=== PATIENT | female | born 1970 | race Caucasian/White ===

== ENCOUNTER 2018-04-04 11:45 | Inpatient (IN) | payer OTHER ==
[~2018-04-04] VITALS: Ht 180.3 cm; Wt 58.5 kg
[2018-04-04] MEDS ORDERED: LORAZEPAM 1 MG TABLET PO PRN (13:45)
[2018-04-04] MEDS ORDERED: METHOCARBAMOL 750 MG TABLET PO PRN (13:45)
[2018-04-04] MEDS ORDERED: BUPRENORPHINE HCL 2 MG TAB.SUBL SL PRN ×2 (13:45→14:00)
[2018-04-04] MEDS ORDERED: 5 DAY TAPER BUPRENORPHINE -SERENITY PROTOCOL SL PRN (14:00)
[2018-04-04] MEDS ORDERED: 6 DAY PHENOBARBITAL TAPER -SERENITY PROTOCOL PO PRN (14:00)
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
[2018-04-04 14:23] LABS: *URINE HCG, QUAL NEGATIVE (NEGATIVE)
[2018-04-04 14:23] LABS: BASOPHILS % (AUTO) 0.5 % (0.0-2.0); EOSINOPHILS # (AUTO) 0.1 K/uL (0.0-0.7); EOSINOPHILS % (AUTO) 1.3 % (0.0-7.0); HEMATOCRIT 37.4 % (31.2-41.9); HEMOGLOBIN 12.7 g/dL (10.9-14.3); LYMPHOCYTES # (AUTO) 1.3 K/uL (20.0-40.0); LYMPHOCYTES % (AUTO) 15.2 % (20.5-51.5); MEAN CORPUSCULAR HEMOGLOBIN 29.7 uug (24.7-32.8); MEAN CORPUSCULAR HGB CONC 34 g/dL (32.3-35.6); MEAN CORPUSCULAR VOLUME 87.5 fL (75.5-95.3); MONOCYTES # (AUTO) 0.7 K/uL (2.0-10.0); MONOCYTES % (AUTO) 8.5 % (0.0-11.0); NEUTROPHILS # (AUTO) 6.3 K/uL (1.8-8.9); NEUTROPHILS % (AUTO) 74.5 % (38.5-71.5); PLATELET COUNT (AUTO) 288 K/uL (179-408); RED BLOOD CELL COUNT(AUTO) 4.28 MIL/uL (3.63-4.92); WHITE BLOOD COUNT (AUTO) 8.5 K/uL (3.8-11.8)
[2018-04-04 14:29] LABS: ALANINE AMINOTRANSFERASE 111 U/L (14-59); ALKALINE PHOSPHATASE 63 U/L (50-136); ASPARTATE AMINOTRANSFERASE 83 U/L (15-37); BILIRUBIN,TOTAL 0.4 mg/dL (0.2-1.0); CARBON DIOXIDE 35 mmol/L (21-32); CHLORIDE 104 mmol/L (98-107); CREATININE 0.7 mg/dL (0.6-1.3); GLUCOSE 114 mg/dL (74-106); MAGNESIUM 2.1 mg/dL (1.8-2.4); POTASSIUM 4.2 mmol/L (3.5-5.1); TOTAL PROTEIN, SERUM 7.4 g/dL (6.4-8.2); UREA NITROGEN, BLOOD 4 mg/dL (7-18)
[2018-04-04] MEDS ORDERED: THIAMINE HCL 200 MG/2 ML VIAL IM ONE (14:29)
[2018-04-04 14:34] VITALS: BP 137/84
[2018-04-04 14:41] LABS: *AMPHETAMINE, URINE POSITIVE (NEGATIVE); *BARBITURATE, URINE NEGATIVE (NEGATIVE); *CANNABINOID, URINE NEGATIVE (NEGATIVE); *COCCAINE, URINE NEGATIVE (NEGATIVE); *OPIATE, URINE POSITIVE (NEGATIVE); *PHENCYCLIDINE SCREEN,URINE NEGATIVE (NEGATIVE)
[2018-04-04 14:47] LABS: ETHANOL < 3 MG/DL (0-0)
[2018-04-04] MEDS ORDERED: ATEN50TA PO (14:50)
[2018-04-04] MEDS ORDERED: ONDA8TAB13 PO (14:51)
[2018-04-04] MEDS ORDERED: HYDR28GE TP (14:53)
[2018-04-04 16:29] VITALS: BP 129/88
[2018-04-04] MEDS: IBUPROFEN 600 MG TABLET PO PRN (16:34)
--- NOTE | 2018-04-04 16:34 | NUR ---
PRN ATIVAN/IBUPROFEN/ROBAXIN Patient presented with tremors, anxiety, agitation, fidgety, and mild numbness to hands and feet, with ciwa score of: 15. Patient also complained of back pain 04/09, Administered Ibuprofen and Robaxin as ordered, will monitor effectiveness of medications.
--- NOTE | 2018-04-04 17:34 | NUR ---
ATIVAN/IBUPROFEN/ROBAXIN REASSESSMENT Medications were effective. Patient presented with: decrease in tremors, anxiety and agitation, current ciwa score of: 12. Patient also reports decrease in pain. current pain level of 3/10, tolerable pain level as per patient, will continue to monitor.
--- NOTE | 2018-04-04 19:05 | NUR ---
MD COMMUNICATION Patient asked staff nurse if she has sleeping medication available, since she has been taking Ambien for sleep and has a difficult time falling asleep, per patient reports in the past Seroquel has been effective, reports has taken Seroquel 100mg at bedtime, notified Dr. Centeno with one time order for Seroquel 100mg HS for sleep, Dr. Centeno unable to input order at this time. Order was read back and verified, noted and carried out.
--- NOTE | 2018-04-04 19:08 | NUR ---
START OF SHIFT The patient is a 47 year old female admitted today for Benzodiazepines (Xanax, Clonazepam), Opioid (Vicodin), Tramadol, Ketamine, Adderall, Ambien withdrawal, ordered 5 Day Subutex Taper and 6 day Phenobarbital Taper, that will start on 04/05/2018. The patient reports NKA, Regular diet, is on Fall and Seizures Precautions. The patient denies history of withdrawal-induced seizures. Patient denies SI/HI. The patient presents with anxious mood and flat affect. Last COWS=9, CIWA=12 at 1734. The patient c/o anxiety, agitation, nervousness, irritability, restlessness, fatigue, nervousness, tremors, generalized body aches, and fatigue. PRN Motrin 600 mg PO administrated for back pain at 1634, PRN Robaxin 750 mg PO administrated for myalgia at 1634, and PRN Ativan 2 mg administrated for CIWA=15 at 1734, and were effective per day shift nurse report. The patient remains compliant with treatment, medications, and diet regime. VSWNL. Skin is intact, warm and dry to touch. Encouraged to fluids intake as tolerated. Encouraged to attend group activities. Safe and calm environment with minimized noises was provided. All needs met. Safety measures: Call light within reach, bed is locked in lowest position, and padded bed rails up bilaterally. T he patient endorsed by outgoing day shift nurse. Will continue to monitor closely.
--- NOTE | 2018-04-04 19:08 | NUR ---
END OF SHIFT Patient admitted today during shift, with admitting Dx: BZO/Opiate withdrawal. Patient currently continues under close observation. Patient noted with avoidant eye contact, has sad and worried facial expression, flat and labile affect. Presented with: tremors, anxiety, agitation, mild numbness to hands and feet, enlarged pupils, difficulty sitting still, fidgety, and bone and joint aches with ciwa score of: 15, and cow score of: 9. Patient was administered PRN Ativan 2 mg PO as ordered for s/sx of withdrawal, MD notified as well. Patient was also administered PRN: Ibuprofen and Robaxin as ordered, medications were effective. Patient is scheduled to begin a 5 day Subutex taper and 6 day phenobarbital taper tomorrow morning. Will continue under close observation. safety measures are in place. call light with in reach, will continue to monitor closely. patient endorsed to shell molding roller blast operator nurse, all pertinent information discussed.
[2018-04-04 20:00] VITALS: BP 122/87
--- NOTE | 2018-04-04 20:33 | NUR ---
PRN ATIVAN 2 MG PO AND PRN SUBUTEX 4MG SL ADMINISTRATION. The patient has moderate withdrawal symptomps m/b anxiety, agitation, irritability, nervousness, tremors, stomach cramps, nasal congestion, nausea, sweating,restlessness, generalized body aches, fatigue, insomnia,pins and needles sensations, and yawning. COWS=16, CIWA=16. PRN Ativan 2mg PO and PRN Subutex 4 mg SL administrated as ordered. Patient tolerated well. All needs met. Safe and calm environment with minimized noises was provided. Safety measures on place. Call light within reach, bed in lowest position locked, padded rails up bilaterally. Will continue to monitor closely.
[2018-04-04] MEDS ORDERED: QUETIAPINE FUMARATE 100 MG TABLET PO ONE (21:00)
--- NOTE | 2018-04-04 21:33 | NUR ---
PRN ATIVAN PO AND PRN SUBUTEX SL RE-ASSESSMENT Patient is sleeping. RR 16. Respirations even and unlabored. PRN Attivan 2 mg PO administrated for CIWA=16, and PRN Subutex 4 mg SL administrated for COWS=16, were effective. Safe and calm environment with minimized noises was provided. All needs met. Safety measures on place. Call light within reach, bed in lowest position locked, padded rails up bilaterally. Will continue to monitor closely.
[2018-04-04] MEDS: ATENOLOL 50 MG TABLET PO SCH (22:08)
[2018-04-04 22:48] LABS: *BILIRUBIN,URIN NEGATIVE (NEGATIVE); *BLOOD, URINE Trace-intact (NEGATIVE); *CLARITY,URINE CLEAR (CLEAR); *COLOR,URINE YELLOW (YELLOW); *KETONES,URINE NEGATIVE (NEGATIVE); *PROTEIN,URINE NEGATIVE (NEGATIVE); *UROBILINOGEN,URINE 0.2 E.U./dl (NORMAL); LEUKOCYTE ESTERASE ,URINE NEGATIVE (NEGATIVE); NITRITE, URINE NEGATIVE (NEGATIVE); UGLUCOSE NEGATIVE (NEGATIVE)
[2018-04-04] MEDS: ONDANSETRON ODT 4 MG TAB.RAPDIS SL PRN (22:57)
--- NOTE | 2018-04-04 22:57 | NUR ---
PRN ZOFRAN ODT 4 MG SL ADMINISTRATION Patient c/o nausea. PRN Zofran 4 mg SL administrated as ordered. Patient tolerated well. All needs met. Safe and calm environment with minimized noises was provided. Safety measures on place. Call light within reach, bed in lowest position locked, padded rails up bilaterally. Will continue to monitor closely.
[2018-04-04 23:01] LABS: BACTERIA,URINE NONE SEEN /HPF (NONE SEEN); RBC,URINE 0-3 /HPF (0-3); WBC,URINE NONE SEEN /HPF (0-3)
[2018-04-04 23:02] LABS: SQUAMOUS EPITHELIAL CELL,UR FEW /HPF (NONE SEEN)
--- NOTE | 2018-04-04 23:57 | NUR ---
PRN ZOFRAN SL RE-ASSESSMENT Patient is sleeping. RR: 16. Respirations are even and unlabored. PRN Zofran 4 mg SL administrated for nausea at 2257 was effective. Safe and calm environment with minimized noises was provided. All needs met. Safety measures on place. Call light within reach, bed in lowest position locked, padded rails up bilaterally. Will continue to monitor closely.
[2018-04-05] VITALS: BP 96/54
[2018-04-05 04:00] VITALS: BP 99/64
[2018-04-05 05:07] LABS: HEPATITIS B SURFACE AG Negative (Negative)
--- NOTE | 2018-04-05 07:11 | NUR ---
END OF SHIFT NOTE: Endorsed 47 year old female reports NKA, is on Regular Diet, Full Code, is on Fall and Seizures Precautions, denies history of withdrawal-induced seizures. The patient admitted for Benzodiazepines and Opioid withdrawal, ordered 6 day Phenobarbital, and 5 day Subutex Tape. The patient is alert and oriented x4, cooperative, with steady gait, and clear, soft speech. Initial COWS=16, CIWA=16 at 2000, COWS=12, CIWA=11 at 0000. The most recent COWS=12, CIWA=12 at 0400. Affect liable. Mood anxious. The patient presented with anxiety, agitation, nervousness, tremors, irritability, sweating, generalized body aches, very mild lightheaded, nausea, insomnia, yawning, restlessness, and fatigue. COWS/CIWA taken when patient's awake during night. Respirations are unlabored and even. Skin is intact, warm and dry to touch. PRN Ativan 2 mg PO administrated for CIWA=16 , and PRN Subutex 4 mg SL administrated for COWS=16, and PRN Zofran 4 mg SL administrated for nausea at 2257 was effective, and were effective. Patient remains compliant with treatment, medications, and diet regime. Safe and calm environment with minimized noises was provided. Patient slept for 6 hours, intake 855 ml, voided x3. All needs met. Safety measures: Call light within reach, bed is locked in the lowest position, and padded bed rails up x2. Patient endorsed to day shift nurse.
--- NOTE | 2018-04-05 07:16 | NUR ---
BEGINNING OF SHIFT Patient endorsement report received from typewriter repairer nurse, all pertinent information was discussed. Patient is a 47 year old female admitted on 04/04/2018 with admitting Dx: opiate/BZO withdrawal, patient also with substance use of: tramadol, ketamine, Adderall, and Ambien.Patient currently scheduled to begin a 5 day Subutex taper, and a 6 day phenobarbital taper this morning, will monitor patient closely. As per typewriter repairer patient with poor sleeping pattern, slept for 6 hours intermittently. Per typewriter repairer patient c/o of "bladder infection" urinalysis completed, and negative in results will encourage patient to increase PO fluid intake as tolerated. patients fall and seizure precautions are in place. Per typewriter repairer patient received PRN: Ativan 2mg PO, Subutex 4mg SL, and Zofran medications. Patient with last cow score of: 12, and last ciwa score of: 12. Patient received with eyes closed, respirations are even and unlabored, patient responsive to verbal stimuli, will educate regarding plan of care for the day and medication regimen. will continue to monitor closely. safety measures are in place. call light with in reach.
[2018-04-05 08:29] VITALS: BP 122/81
[2018-04-05] MEDS: MULTIVITAMINS,THERAPEUTIC TABLET PO SCH (08:57)
[2018-04-05] MEDS: ONDANSETRON ODT 4 MG TAB.RAPDIS SL PRN ×2 (08:57→18:21)
[2018-04-05] MEDS: IBUPROFEN 600 MG TABLET PO PRN (08:57)
[2018-04-05] MEDS: PHENOBARBITAL 60 MG TABLET PO SCH ×4 (08:57→20:31)
[2018-04-05] MEDS: ATENOLOL 50 MG TABLET PO SCH (08:57)
[2018-04-05] MEDS: BUPRENORPHINE HCL 2 MG TAB.SUBL SL SCH ×4 (08:57→20:31)
[2018-04-05] MEDS: FOLIC ACID 1 MG TABLET PO SCH (08:57)
[2018-04-05] MEDS: THIAMINE HCL 100 MG TABLET PO SCH (08:57)
--- NOTE | 2018-04-05 08:57 | NUR ---
PRN MOTRIN/ZOFRAN Patient c/o generalized back pain 5/10, also reports intermittent nausea. Patient was administered Ibuprofen as ordered for pain, and administered Zofran 4 mg SL as ordered for nausea, will monitor effectiveness of medication.
[2018-04-05] MEDS ORDERED: TUBERCULIN,PURIF.PROT.DERIV. 5 TU/0.1 ML TEST ID ONE (09:00)
--- NOTE | 2018-04-05 09:27 | NUR ---
ZOFRAN REASSESSMENT Medication effective, patient reports decrease in nausea, will continue to monitor.
--- NOTE | 2018-04-05 09:57 | NUR ---
IBUPROFEN REASSESSMENT Patient reports medication effective, decrease in pain level, current pain level 2/10, will monitor effectiveness of medication.
[2018-04-05 12:58] VITALS: BP 138/92
[2018-04-05] MEDS: GABAPENTIN 300 MG CAPSULE PO SCH ×2 (13:23→16:42)
[2018-04-05 16:40] VITALS: BP 122/79
--- NOTE | 2018-04-05 18:21 | NUR ---
PRN ZOFRAN Patient reports increase in nausea, administered Zofran 4 mg SL as ordered for nausea, will monitor effectiveness of medication.
--- NOTE | 2018-04-05 18:51 | NUR ---
ZOFRAN REASSESSMENT Medication effective, patient reports decrease in nausea, will continue to monitor.
--- NOTE | 2018-04-05 19:01 | NUR ---
END OF SHIFT Patient alert and oriented x4 during shift. Patient admitted yesterday with admitting Dx: BZO/Opiate withdrawal. Patient began a 5 day Subutex taper and 6 day phenobarbital taper, with first dose administered this morning, well tolerated. Continues under very close observation. During shift patient presented with: elevated heart rate, sweats, difficulty sitting still, moderate dilated pupils, nasal congestion, nausea, tremors, yawning, irritability, anxiety and mild right foot numbness. Patient with initial cow score of: 15, and ciwa score of 22. Patient with last cow score of: 15 and last ciwa score of: 18. Patient also noted with avoidant eye contact, has sad facial expression, and labile affect. Patient administered PRN: Zofran x2 and Motrin during shift, medications were effective. Will continue under close observation. safety measures are in place. call light with in reach, will continue to monitor closely. patient endorsed to material handler 2nd shift nurse, all pertinent information discussed.
--- NOTE | 2018-04-05 19:01 | NUR ---
START OF SHIFT NOTE: Presented 47 year old female tolerated well with ordered 5 Day Subutex Taper and 6 day Phenobarbital Taper for Benzodiazepines (Xanax, Clonazepam), Opioid (Vicodin), Tramadol, Ketamine, Adderall, Ambien withdrawal. The patient reports NKA, Regular diet, is on Fall and Seizures Precautions. The patient denies history of withdrawal-induced seizures. Patient denies SI/HI. The patient appears with anxious mood and liable affect. Last COWS=15, CIWA=18 at 1734. The patient c/o anxiety, agitation, nervousness, irritability, nausea, abdominal cramps, restlessness, fatigue, nervousness, tremors, generalized body aches, low back pain, pins and needles sensations, and fatigue. PRN Motrin 600 mg PO administrated for low back pain "5/10" at 0857, PRN Zofran 4 mg SL administrated for nausea at 0857, and were effective per day shift nurse report. The patient remains compliant with treatment, medications, and diet regime. VSWNL. Skin is intact, warm and dry to touch. Encouraged to fluids intake as tolerated. Encouraged to attend group activities. Safe and calm environment with minimized noises was provided. All needs met. Safety measures: Call light within reach, bed is locked in lowest position, and padded bed rails up bilaterally. The patient endorsed by outgoing day shift nurse. Will continue to monitor closely.
[2018-04-05 20:00] VITALS: BP 118/81
[2018-04-05] MEDS: QUETIAPINE FUMARATE 100 MG TABLET PO PRN (20:32)
--- NOTE | 2018-04-05 20:32 | NUR ---
PRN SEROQUEL 100 MG PO ADMINISTRATION PRN Seroquel 100 mg PO administrated for insomnia, as ordered. Patient tolerated well. Safe and calm environment with minimized noises was provided. All needs met. Safety measures: Call light within reach, bed locked in lowest position, and padded bed rails up bilaterally. Will continue to monitor closely.
[2018-04-05 20:53] LABS: BILIRUBIN,TOTAL 0.2 mg/dL (0.1-1.0); CREATININE 0.7 mg/dL (0.6-1.3); POTASSIUM 4.9 mmol/L (3.5-5.1)
[2018-04-05 20:54] LABS: TOTAL PROTEIN, SERUM 6.4 g/dL (6.4-8.2)
--- NOTE | 2018-04-05 21:32 | NUR ---
PRN SEROQUEL PO RE-ASSESSMENT Patient is sleeping. RR 15. Respirations even and unlabored. PRN Seroquel 100 mg PO administrated for insomnia at 2031, was effective. Safe and calm environment with minimized noises was provided. All needs met. Safety measures: Call light within reach, bed locked in lowest position, and padded rails up bilaterally. Will continue to monitor closely.
--- NOTE | 2018-04-06 | NUR ---
VS REFUSED, CIWA /COWS DEFERRED VS refused, CIWA/COWS deferred at 0000 due to patient sleeping; to be assessed and scored while patient is awake. Respirations are even and unlabored. RR:14. Safe and calm environment with minimized noises was provided. All needs met. Safety measures: Call light within reach bed is locked in lowest position, and padded bed rails up bilaterally.
--- NOTE | 2018-04-06 04:00 | NUR ---
VS REFUSED, COWS/CIWA DEFERRED VS refused, COWS/CIWA deferred at 0400 due to patient sleeping; to be assessed and scored while patient is awake. Respirations are even and unlabored. RR:17. Safe and calm environment with minimized noises was provided. All needs met. Safety measures: Call light within reach bed is locked in lowest position, and padded bed rails up bilaterally.
--- NOTE | 2018-04-06 07:12 | NUR ---
END OF SHIFT The patient is a 47 year old female presented for Benzodiazepines (Xanax, Clonazepam), Opioid (Vicodin), Tramadol, Ketamine, Adderall, Ambien withdrawal, continues ordered 5 Day Subutex Taper and 6 day Phenobarbital Taper, which tolerated well. The patient is alert and oriented x4, ambulatory with stable gate. The patient is cooperative, with soft, and clear speech. The patient noted with flat affect and liable mood. Educated to use of Relaxation Techniques: Deep breathing exercises, guided imagery, and visualization. Encouraged verbalization of feelings, fears, and anxiety. Emotional support and reassurance provided to patient. COWS=12, CIWA=12 at 1999. During overnight stocker she presented with anxiety, agitation, nervousness, irritability, headache, generalized body aches, abdominal cramps, nasal congestion, sweating, restlessness, fatigue, and yawning. VS refused, COWS/CIWA deferred at 0000 and 0400 a due to patient sleeping; to be assessed and scored while patient is awake. No S/S of distress noted during my shift. Respirations are unlabored and even. Skin is intact, warm and dry to touch. PRN Seroquel 100 mg PO administrated for insomnia at 2031, and was effective. Patient remains compliant with treatment, medications, and diet regime. Safe and calm environment with minimized noises was provided. Encouraged to increase oral fluid intake as tolerated. The patient slept for 7 hours, intake 710 ml, voided x2, stool x1. All needs met. Safety measures: Call light within reach, bed in the lowest position and locked, and padded bed rails up x2. Patient endorsed to day shift nurse.
--- NOTE | 2018-04-06 07:29 | NUR ---
BEGINNING OF SHIFT Patient endorsement report received from shift superintendent caustic cresylate nurse, all pertinent information was discussed. Patient is a 47 year old female. Patient with admitting Dx: opiate/BZO withdrawal. Patient continues on a 5 day Subutex taper, and a 6 day phenobarbital taper and is scheduled to begin day 2 of taper. Per shift superintendent caustic cresylate patient slept for 7 hours. Received PRN: seroquel during shift superintendent caustic cresylate for sleep, medication effective, patient slept for 7 hours. Patient with last cow score of: 12, and last ciwa score of: 12. Patient received with eyes closed, respirations are even and unlabored, patient responsive to verbal stimuli, will educate regarding plan of care for the day and medication regimen. will continue to monitor closely. safety measures are in place. call light with in reach.
[2018-04-06 08:07] VITALS: BP 103/62
[2018-04-06] MEDS: BUPRENORPHINE HCL 2 MG TAB.SUBL SL SCH ×3 (08:33→20:51)
[2018-04-06] MEDS: GABAPENTIN 300 MG CAPSULE PO SCH ×3 (08:33→17:25)
[2018-04-06] MEDS: MULTIVITAMINS,THERAPEUTIC TABLET PO SCH (08:33)
[2018-04-06] MEDS: FOLIC ACID 1 MG TABLET PO SCH (08:33)
[2018-04-06] MEDS: PHENOBARBITAL 60 MG TABLET PO SCH ×3 (08:33→20:52)
[2018-04-06] MEDS: ONDANSETRON ODT 4 MG TAB.RAPDIS SL PRN ×2 (08:33→20:57)
[2018-04-06] MEDS: ATENOLOL 50 MG TABLET PO SCH (08:33)
[2018-04-06] MEDS: THIAMINE HCL 100 MG TABLET PO SCH (08:33)
[2018-04-06] MEDS: IBUPROFEN 600 MG TABLET PO PRN ×2 (08:33→20:52)
[2018-04-06] MEDS: METHOCARBAMOL 500 MG TABLET PO PRN ×2 (08:34→20:52)
--- NOTE | 2018-04-06 08:34 | NUR ---
PRN ZOFRAN, MOTRIN, ROBAXIN Patient reports intermittent nausea, myalgia and generalized body pain 05/10, administered Zofran, Motrin and Robaxin all as ordered, will monitor effectiveness of medication.
--- NOTE | 2018-04-06 09:00 | NUR ---
COW/CIWA ASSESSMENT Patient in bed, noted with sad and worried facial expression, with flat affect. Noted with anxious/depressed mood. Patient presented with: elevated heart rate, sweats, facial flushing, difficulty sitting still, enlarged pupils, bone and joint aches, nausea, tremors, anxiety, agitation, moderate numbness to right foot, sensitivity to light and to noise. Patient with cow score of: 15, and ciwa score of: 27. MD notified of patients CIWA Score, No new orders. Patient continues on Subutex and phenobarbital taper as ordered. Encouraged patient to increase PO fluid intake as tolerated.
--- NOTE | 2018-04-06 09:34 | NUR ---
MOTRIN/ROBAXIN REASSESSMENT Patient reports medication was effective, decrease in myalgia and generalized body pain, current pain level 4/10. will continue to monitor.
--- NOTE | 2018-04-06 10:04 | NUR ---
ZOFRAN REASSESSMENT Patient reports medication effective, decrease in nausea, will continue to monitor.
--- NOTE | 2018-04-06 12:00 | NUR ---
MD COMMUNICATION Dr. Jacobs notified of patients CK level of: 513. Will continue to monitor.
--- NOTE | 2018-04-06 13:00 | NUR ---
COW/CIWA ASSESSMENT Patient awake alert and oriented x4, continues under close observation, patient continues to present with: sweats, facial flushing, difficulty sitting still, enlarged pupils, bone and joint aches, nausea, tremors, anxiety, agitation, and moderate numbness to right foot. Patient with cow score of: 14, and ciwa score of: 23. Detox medication effective at reducing withdrawal symptoms. vital signs monitored closely. MD notified of patients CIWA Score, No new orders. Patient continues on Subutex and phenobarbital taper as ordered. Safety measures in place.
[2018-04-06 13:45] VITALS: BP 122/75
--- NOTE | 2018-04-06 14:25 | NUR ---
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 Dr. Avina aware, patient placed on isolation precautions and scheduled to begin Bactroban therapy. Teaching provided regarding MRSA, with good verbal understanding. Will continue to monitor closely.
--- NOTE | 2018-04-06 17:00 | NUR ---
COW/CIWA ASSESSMENT Patient awake alert and oriented x4, continues under close observation, patient continues to exhibit the following s/sx of withdrawal: sweats, facial flushing, difficulty sitting still, enlarged pupils, bone and joint aches, nausea, tremors, anxiety, agitation, and moderate numbness to right foot. Patient with cow score of: 14, and ciwa score of: 23. vital signs monitored closely. MD notified of patients CIWA Score, No new orders. Patient continues on Subutex and phenobarbital taper as ordered. Safety measures in place.
[2018-04-06 17:01] VITALS: BP 97/57
[2018-04-06 17:02] VITALS: BP 126/89
--- NOTE | 2018-04-06 18:57 | NUR ---
END OF SHIFT Patient alert and oriented x4 during shift. Patient with admitting Dx: BZO/Opiate withdrawal. During shift patient was noted with sad and worried facial expression, with flat affect. Noted with anxious/depressed mood. Patient presented with: elevated heart rate, sweats, facial flushing, difficulty sitting still, enlarged pupils, bone and joint aches, nausea, tremors, anxiety, agitation, moderate numbness to right foot, sensitivity to light and to noise. Initial cow score of: 15, and ciwa score of: 27, last cow score of: 14, and ciwa score of: 23. MD was notified of patients CIWA Score due to above 15. Patient continues on Subutex and phenobarbital taper as ordered, currently on day 2 of taper. Encouraged patient to increase PO fluid intake as tolerated. Patient received PRN: Zofran, Motrin and Robaxin during shift, medications were effective. Will continue under close observation. safety measures are in place. call light with in reach, will continue to monitor closely. patient endorsed to maintenance supervisor 2nd shift nurse, all pertinent information discussed.
--- NOTE | 2018-04-06 19:30 | NUR ---
START OF SHIFT Received 47 year old female patient admitted on 04/04/18 for Benzodiazepine, Opiates and amphetamine withdrawal. Pt is alert and oriented x4. She is noted with anxiety, flushed face, restlessness, and irritability. She complains of head, neck and right leg pain 04/09. She is receiving a 5 day Subutex and 6 day Phenobarbital taper and is tolerating well. 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 She is being treated with Bactroban ointment. She received PRN Zofran, Motrin and Robaxin. Last COWS:14, CIWA:23. Breathing is even and unlabored, safety measures in place. Will continue to monitor.
[2018-04-06 20:00] VITALS: BP 130/80
--- NOTE | 2018-04-06 20:00 | NUR ---
COWS/CIWA ASSESSMENT Pt reports nausea, increased anxiety, agitation, restlessness, chills, sweats, severe aching of muscles, slight tremor, sensitivity to light, insomnia, mild numbness/pins and needles to right leg, and mild lightheaded ness. COWS:14, CIWA:20. Will continue to monitor.
[2018-04-06] MEDS: QUETIAPINE FUMARATE 100 MG TABLET PO PRN (20:53)
[2018-04-06] MEDS: HYDROXYZINE PAMOATE 25 MG CAPSULE PO PRN (20:53)
--- NOTE | 2018-04-06 20:53 | NUR ---
PRN VISTARIL, SEROQUEL, MOTRIN, ROBAXIN, ZOFRAN Pt complains of anxiety, difficulty falling asleep, neck and back pain 7/10, body aches and nausea. PRN Vistaril, Seroquel, Motrin, Robaxin and Zofran administered as ordered. Safety measures in place. Will monitor effectiveness.
[2018-04-06] MEDS: MUPIROCIN 2% OINT 22 GM TUBE TP SCH (20:54)
--- NOTE | 2018-04-06 21:53 | NUR ---
PRN VISTARIL, SEROQUEL, MOTRIN, ROBAXIN, ZOFRAN REASSESSMENT PRN medications effective. Pt is lying in bed with eyes closed and is noted to be asleep. Breathing is even and unlabored, safety measures in place. Will continue to monitor.
[2018-04-07 00:20] VITALS: BP 131/85
--- NOTE | 2018-04-07 00:22 | NUR ---
COWS/CIWA ASSESSMENT Pt noted with chills/sweats, tremors, muscle aches, anxiety, restlessness, sensation of numbness and pin/needles to the right leg. COWS:10, CIWA:15. Will monitor.
--- NOTE | 2018-04-07 04:00 | NUR ---
VITALS REFUSED, COWS/CIWA DEFERRED 0400 vitals signed were refused by pt at beginning of shift. COWS/CIWA deferred d/t pt lying in bed with eyes closed and is noted to be asleep. Breathing is even and unlabored, safety measures in place. Will monitor.
--- NOTE | 2018-04-07 07:08 | NUR ---
END OF SHIFT Pt is a 47 year old female patient admitted on 04/04/18 for Benzodiazepine, Opiates and amphetamine withdrawal. Pt remains alert and oriented x4. She was noted with anxiety, flushed face, restlessness, and irritability. And complained of head, neck and right leg pain 7/10 during the shift. She continues on a 5 day Subutex and 6 day Phenobarbital taper and is tolerating well. She remains on isolation for MRSA+ of nares and is being treated with Bactroban ointment Q12H.At 2052 she received PRN Seroquel , Motrin, Robaxin, Vistaril and Zofran. She slept a total of 8 hrs,Intake: 855mL, Void: x2, BM:x1, COWS:10, CIWA:15 at 0000. Breathing is even and unlabored, safety measures in place. Endorsed to AM shift.
--- NOTE | 2018-04-07 07:30 | NUR ---
START OF SHIFT NOTE Received repot from night nurse, 47 year old female admitted for Benzo, Opioids, Amphetamine withdrawal. Patient continues on Phenobarbital and Subutex taper tolerating well. Per endorsement pt received PRN Seroquel, Motrin, Robaxin, Vistaril, Zofran effective per night nurse, pt continues on isolation for MRSA nares and treating with Bactroban. Received pt alert awake oriented x4, complaining of anxiety, agitation, restless. Patient is due for scheduled medications. Educated pt regarding plan of care for the day and medications regimen. All safety measures in place. Call light within reach. Will cont to monitor.
[2018-04-07 08:00] VITALS: BP 120/78
--- NOTE | 2018-04-07 08:00 | NUR ---
COWS/CIWA ASSESSMENT Patient is alert awake oriented x4 continues to exhibit s/s of withdrawal such as nausea,bilateral hand tremors, sweats, chills, anxious and agitated, bone and joint aches, difficulty sitting still, yawning, CIWA score -15, and COWS noted-14. will cont to monitor.
[2018-04-07] MEDS: GABAPENTIN 300 MG CAPSULE PO SCH ×3 (08:47→16:36)
[2018-04-07] MEDS: THIAMINE HCL 100 MG TABLET PO SCH (08:47)
[2018-04-07] MEDS: FOLIC ACID 1 MG TABLET PO SCH (08:47)
[2018-04-07] MEDS: MUPIROCIN 2% OINT 22 GM TUBE TP SCH (08:47)
[2018-04-07] MEDS: MULTIVITAMINS,THERAPEUTIC TABLET PO SCH (08:47)
[2018-04-07] MEDS: PHENOBARBITAL 60 MG TABLET PO SCH ×4 (08:48→20:36)
[2018-04-07] MEDS: ATENOLOL 50 MG TABLET PO SCH (08:49)
[2018-04-07] MEDS ORDERED: BUPRENORPHINE HCL 2 MG TAB.SUBL SL SCH (09:00)
[2018-04-07] MEDS: ONDANSETRON ODT 4 MG TAB.RAPDIS SL PRN ×2 (09:35→20:50)
--- NOTE | 2018-04-07 09:35 | NUR ---
PRN ZOFRAN Patient reported feeling nauseated with no c/o of vomiting. provided with non pharmacological intervention with no relief. PRN Zofran 4mg SL administered as ordered. Will cont to monitor and reassess for effectiveness.
--- NOTE | 2018-04-07 10:35 | NUR ---
ZOFRAN REASSESSMENT Per patient nausea subsided and Zofran was effective.
[2018-04-07 12:00] VITALS: BP 117/75
--- NOTE | 2018-04-07 12:00 | NUR ---
COWS/CIWA ASSESSMENT Patient is alert awake oriented x4 continues to exhibit s/s of withdrawal such as nausea, bilateral hand tremors, sweats, chills, anxious and agitated, bone and joint aches, difficulty sitting still, yawning, light headed CIWA score -14, and COWS noted-13. Will cont to monitor.
[2018-04-07] MEDS: IBUPROFEN 600 MG TABLET PO PRN ×2 (13:41→20:36)
[2018-04-07] MEDS: METHOCARBAMOL 500 MG TABLET PO PRN (13:41)
--- NOTE | 2018-04-07 13:41 | NUR ---
PRN MOTRIN/ROBAXIN Patient c/o headache 01/08, and myalgia 02/07. Patient provided with non pharmacological intervention with no relief. PRN Motrin 600mg PO and Robaxin 750mg PO as ordered. Will cont to monitor and reassess the pt.
--- NOTE | 2018-04-07 14:41 | NUR ---
MOTRIN/ROBAXIN REASSESSMENT Per patient medications were effective, headache lower to 1/10, myalgia lower to 2/10.
[2018-04-07] MEDS: BUPRENORPHINE HCL 2 MG TAB.SUBL SL SCH ×2 (15:08→20:36)
[2018-04-07 16:00] VITALS: BP 119/73
--- NOTE | 2018-04-07 16:00 | NUR ---
COWS/CIWA ASSESSMENT Patient is alert awake oriented x4 continues to exhibit s/s of withdrawal such as stuffy nose, nausea, bilateral hand tremors, sweats, chills, anxious and agitated, bone and joint aches, difficulty sitting still, tingling and numbness, restless, light headed CIWA score -15, and COWS noted-14. Will cont to monitor.
--- NOTE | 2018-04-07 16:44 | NUR ---
Therapist prompted client to attend twice daily group counseling sessions.
--- NOTE | 2018-04-07 19:00 | NUR ---
NURSING NOTE After dinner patient complaining of left breast pain 12/08. Per patient "I think my implant is not in place that's why i am having this pain." Charge nurse notified MD. Per MD if implant is not in place she should not be feeling any pain will see her in AM and continues to treat accordingly. Offered Pain medications and Vistaril patient refused and stated "i am not looking for any medications at this time." Patient agreed to use hot pack. Hot pack given and patient is resting in bed at this time. Will endorsed to night nurse to follow up and monitor closely.
--- NOTE | 2018-04-07 19:14 | NUR ---
END OF SHIFT NOTE Gave report to night nurse, 47 year old female admitted for Benzo, Opioids, Amphetamine withdrawal. Patient continues on Phenobarbital and Subutex taper tolerating well. Patient presented with anxiety, agitation, restless, bilateral hand tremors, nausea, light headed, stuffy nose, headache, muscle aches, chills, sweats. Patient was given PRN and scheduled medications noted to be effective. Encourage PO fluids as tolerated. patient noted with going to groups activities interacting with peers and motivated for further treatment. All safety measures in place, call light within reach. patient endorsed to night nurse in stable condition.
[2018-04-07 20:00] VITALS: BP 122/73
--- NOTE | 2018-04-07 20:00 | NUR ---
COWS AND CIWA ASSESSMENT PATIENT PRESENTS WITH ANXIETY, RESTLESS, SLIGHT TREMORS NOTED , SWEATING, FLUSHED, NAUSEATED BUT NO EMESIS AND PAIN ON LEFT SIDE AREA OF HER BODY(RIB AREA), MILD SENSITIVITY TO LIGHT AND SOUNDS AND YAWNING . COWS 14 AND CIWA 15.
--- NOTE | 2018-04-07 20:00 | NUR ---
START OF SHIFT NOTE PATIENT IS A 47 YEAR OLD FEMALE ADMITTED FOR BENZO/OPIATE WITHDRAWAL. PATIENT IS ON 5 DAY SUBUTEX AND 6 DAY PHENOBARBITAL TAPER. PATIENT IS ON CONTACT ISOLATION FOR MRSA ON NARES. PATIENT WAS C/O OF LEFT BREAST PAIN. MOTRIN , ZOFRAN AND ROBAXIN GIVEN . HOT COMPRESS PROVIDED. LAST COWS 15 AND CIWA 14. PATIENT IN THE ROOM WITH FLAT AFFECT, DEPRESSED MOOD, SOFT AND PRESSURED SPEECH. PATIENT PRESENTS WITH ANXIETY, SLIGHT TREMORS NOTED , SWEATING, FLUSHED, NAUSEATED BUT NO EMESIS AND PAIN ON LEFT SIDE AREA OF HER BODY. SHE C/O OF HAVING POOR APPETITE AND NO BM. ENCOURAGE FLUIDS. SAFETY MEASURES IN PLACE .CALL LIGHT IN REACH. WILL CONTINUE TO MONITOR.
[2018-04-07] MEDS ORDERED: MIRALAX 17 GM POWD.PACK PO PRN (20:15)
[2018-04-07] MEDS ORDERED: MAGNESIUM HYDROXIDE 30 ML LIQUID UDC PO PRN (20:15)
--- NOTE | 2018-04-07 20:35 | NUR ---
PRN MILK OF MAGNESIA AND MOTRIN PATIENT C/O NO BM AND PAIN ON LEFT SIDE OF BODY (RIB AREA) . PATIENT STATES "I THINK I PULLED A MUSCLE". WILL MONITOR FOR EFFECTIVENESS
[2018-04-07] MEDS: MUPIROCIN 2% OINT 22 GM TUBE NS SCH (20:38)
[2018-04-07] MEDS: HYDROXYZINE PAMOATE 25 MG CAPSULE PO PRN (20:50)
--- NOTE | 2018-04-07 20:50 | NUR ---
PRN ZOFRAN AND VISTARIL PATIENT STATES SHE'S ANXIOUS AND NAUSEATED. WILL MONITOR FOR EFFECTIVENESS
--- NOTE | 2018-04-07 21:05 | NUR ---
PRN ZOFRAN RE-ASSESSMENT PATIENT IN BED WATCHING TV. PATIENT STATES ZOFRAN EFFECTIVE. NO NAUSEA CEASED.
--- NOTE | 2018-04-07 21:35 | NUR ---
PRN MOTRIN RE-ASSESSMENT PATIENT STATES MOTRIN HELPFUL , PAIN IS TOLERABLE AT THIS TIME
[2018-04-07] MEDS: QUETIAPINE FUMARATE 100 MG TABLET PO PRN (22:02)
--- NOTE | 2018-04-07 22:02 | NUR ---
PRN SEROQUEL ADMINISTRATION PATIENT REQUESTS FOR SLEEP AID. WILL MONITOR FOR EFFECTIVENESS
--- NOTE | 2018-04-08 | NUR ---
PRN SEROQUEL RE-ASSESSMENT/COWS/CIWA DEFERRED PATIENT IN BED , SLEEPING. VS REFUSED. RESPIRATION EVEN AND UNLABORED. SAFETY MEASURES IN PLACE. CALL LIGHT IN REACH. WILL CONTINUE TO MONITOR
--- NOTE | 2018-04-08 04:00 | NUR ---
COWS/CIWA DEFERRED PATIENT IN BED , SLEEPING. VS REFUSED. RESPIRATION EVEN AND UNLABORED. SAFETY MEASURES IN PLACE. CALL LIGHT IN REACH. WILL CONTINUE TO MONITOR
--- NOTE | 2018-04-08 07:06 | NUR ---
END OF SHIFT NOTE PATIENT SLEPT 8 HOURS. FLUID INTAKE 1,210 ML. VOIDED X 3. NO BM. MONITORED PATIENT THROUGHOUT SHIFT. SCHEDULED MEDICATION AND TAPER GIVEN ORDERED, TOLERATED WELL AND NO ADVERSE REACTION. PATIENT COMPLIANT WITH MEDICATION AND TREATMENT PLAN. PER PATIENT SHE ATTENDED TWO GROUPS. PATIENT WAS GIVEN PRN MOTRIN FOR C/O OF HAVING PAIN ON LEFT SIDE OF BODY (RIB CAGE AREA). PATIENT STATES SHE THINKS SHE PULLED A MUSCLE. PRN MOTRIN GIVEN FOR PAIN, VISTARIL FOR ANXIETY , MILK OF MAGNESIA AND ZOFRAN FOR NAUSEA. PATIENT REQUESTED FOR SLEEP AID, PRN SEROQUEL GIVEN. PATIENT STAYS IN ROOM AND GOES DOWN TO SMOKE. PATIENT IS QUIET AND KEPT TO HERSELF. ENDORSED TO NEXT SHIFT . MILK OF MAGNESIA INEFFECTIVE. ENCOURAGED FLUIDS. SAFETY MEASURES IN PLACE .CALL LIGHT IN REACH. WILL CONTINUE TO MONITOR. LAST COWS 11 AND CIWA 11.
--- NOTE | 2018-04-08 07:40 | NUR ---
START OF SHIFT NOTE Received report from night nurse 47 year old female admitted for Benzo/Opioids, amphetamine withdrawal and patient continues with Subutex and Phenobarbital taper tolerating well. Per endorsement patient was given PRN milk of magnesia Zofran, Motrin, Seroquel,Vistaril, last CIWA 11, COWS-11, slept for 8 hours. Received patient alert awake oriented x4, anxious, agitated, restless, bilateral hand tremors noted, body aches. Educated patient with plan of care and medication regimen with good verbal understanding. All safety measures in place,call light within reach. Will continues to monitor.
[2018-04-08 08:00] VITALS: BP 102/63
--- NOTE | 2018-04-08 08:00 | NUR ---
COWS/CIWA ASSESSMENT Patient is alert awake oriented x4 continues to exhibit s/s of withdrawal such as bilateral hand tremors, sweats, chills, anxious and agitated, bone and joint aches, difficulty sitting still, yawning, stuffy/runny nose, light headed CIWA score -15, and COWS noted-14. Patient is due for schedule medications. Will cont to monitor.
[2018-04-08 08:31] LABS: BILIRUBIN,DIRECT 0.1 mg/dL (0.0-0.2); BILIRUBIN,TOTAL 0.3 mg/dL (0.2-1.0); CREATININE 0.6 mg/dL (0.6-1.3); POTASSIUM 4.3 mmol/L (3.5-5.1); TOTAL PROTEIN, SERUM 6.5 g/dL (6.4-8.2)
[2018-04-08] MEDS: GABAPENTIN 300 MG CAPSULE PO SCH ×3 (08:58→16:32)
[2018-04-08] MEDS: BUPRENORPHINE HCL 2 MG TAB.SUBL SL SCH ×3 (08:58→21:10)
[2018-04-08] MEDS: PHENOBARBITAL 60 MG TABLET PO SCH ×3 (08:59→21:09)
[2018-04-08] MEDS: MULTIVITAMINS,THERAPEUTIC TABLET PO SCH (08:59)
[2018-04-08] MEDS: THIAMINE HCL 100 MG TABLET PO SCH (08:59)
[2018-04-08] MEDS: FOLIC ACID 1 MG TABLET PO SCH (08:59)
[2018-04-08] MEDS: ATENOLOL 50 MG TABLET PO SCH (09:01)
[2018-04-08] MEDS: MUPIROCIN 2% OINT 22 GM TUBE NS SCH ×2 (09:23→21:10)
[2018-04-08 12:00] VITALS: BP 108/70
--- NOTE | 2018-04-08 12:00 | NUR ---
COWS/CIWA ASSESSMENT Patient is alert awake oriented x4 continues to exhibit s/s of withdrawal such as bilateral hand tremors, sweats, chills, stuffy nose, anxious and agitated, bone and joint aches, difficulty sitting still, light headed, CIWA score -14, and COWS noted-14. Will cont to monitor.
--- NOTE | 2018-04-08 15:02 | NUR ---
Client was prompted to attend group counseling sessions.
[2018-04-08 16:00] VITALS: BP 103/69
--- NOTE | 2018-04-08 16:00 | NUR ---
COWS/CIWA ASSESSMENT Patient is alert awake oriented x4 continues to exhibit s/s of withdrawal such as bilateral hand tremors, sweats, chills, anxious and agitated, light headed, CIWA score -12, and COWS noted-11. Will cont to monitor.
[2018-04-08] MEDS: IBUPROFEN 600 MG TABLET PO PRN (18:53)
[2018-04-08] MEDS: METHOCARBAMOL 500 MG TABLET PO PRN (18:53)
--- NOTE | 2018-04-08 18:53 | NUR ---
PRN MEDICATIONS Patient reported neck pain 6/10 and muscle spasms 6/10. Patient provided with non pharmacological intervention with no relief. PRN Motrin 600mg PO and Robaxin 750mg PO given as ordered. Will endorse to night nurse to follow up the effectiveness.
--- NOTE | 2018-04-08 19:12 | NUR ---
END OF SHIFT NOTE Gave report to night nurse 47 year old female admitted for Benzo/Opioids, amphetamine withdrawal and patient continues with Subutex and Phenobarbital taper tolerating well. during shift patient presented with anxiety, agitation, restless, bilateral hand tremors, tingling and numbness, stomach cramps, patient was given scheduled medications were given effective and patient received PRN Motrin and Robaxin endorse to night nurse to follow up. Patient most recent CIWA-12, COWS-11. Patient noted interacting with peers attending activities. Encourage PO fluids as tolerated. Patient was seen by MD with no new order at this time. Patient continues with isolation on MRSA nares and treating with Bactroban oint. Educated patient with good hand washing. Patient is compliant with treatment and medications regimen. All safety measures in place, call light within reach. patient endorse to night nurse in stable condition.
--- NOTE | 2018-04-08 19:30 | NUR ---
START OF SHIFT NOTE RECEIVED REPORT FROM DAY SHIFT NURSE. PATIENT IS A 47 YEAR OLD FEMALE ADMITTED FOR BENZO/OPIATE WITHDRAWAL. PATIENT IS ON 4TH DAY OF HER 5 DAY SUBUTEX AND 6 DAY. CONTINUE ON CONTACT ISOLATION FOR MRSA ON NARES. PATIENT WAS GIVEN PRN ROBAXIN AND MOTRIN FOR NECK PAIN AND MUSCLE SPASM . LAST COWS 11 CIWA 12. PATIENT IN THE ROOM AND WANTING TO GO TO SMOKE. PATIENT WITH FLAT AFFECT AND DEPRESSED MOOD. SOFT AND PRESSURES SPEECH. SAFETY MEASURES IN PLACE. CALL LIGHT IN REACH. WILL CONTINUE TO MONITOR
--- NOTE | 2018-04-08 19:53 | NUR ---
PRN MOTRIN AND ROBAXIN RE-ASSESSMENT PATIENT STATES THAT MOTRIN AND ROBAXIN IS SLIGHTLY EFFECTIVE. WILL CONTINUE TO MONITOR.
[2018-04-08 20:00] VITALS: BP 108/75
--- NOTE | 2018-04-08 20:00 | NUR ---
COWS AND CIWA WITHDRAWAL PATIENT PRESENTS WITH ANXIETY, RESTLESSNESS , NAUSEATED BUT NO EMESIS, IRRITABILITY , TINGLING AND NUMBNESS ON RIGHT LEG , HOT AND COLD SWEATS, SENSITIVE TO LIGHT AND SOUNDS, POOR APPETITE, FINE TREMORS ON BILATERAL HANDS, RESTLESS LEGS AND C/O BACK PAIN . COWS 16 AND CIWA 17. Addendum: 04/08/18 at 2316 by HUBERT PAINTING LVN COWS AND CIWA ASSESSMENT
--- NOTE | 2018-04-08 20:00 | NUR ---
COWS AND CIWA ASSESSMENT PATIENT PRESENTS WITH ANXIETY, RESTLESSNESS , NAUSEATED BUT NO EMESIS, IRRITABILITY , TINGLING AND NUMBNESS ON RIGHT LEG , HOT AND COLD SWEATS, SENSITIVE TO LIGHT AND SOUNDS, POOR APPETITE, FINE TREMORS ON BILATERAL HANDS, RESTLESS LEGS AND C/O BACK PAIN . COWS 16 AND CIWA 17.
--- NOTE | 2018-04-08 20:00 | NUR ---
CIWA ASSESSMENT PATIENT PRESENTS WITH ANXIETY, RESTLESSNESS, IRRITABILITY, FINE TREMORS, SWEATING, SENSITIVE TO LIGHT AND SOUND, HEADACHE AND RESTLESS LEGS. CIWA 13. Addendum: 04/08/18 at 2305 by HUBERT PAINTING LVN THIS CHARTING IS FOR ANOTHER PATIENT
[2018-04-08] MEDS: HYDROXYZINE PAMOATE 25 MG CAPSULE PO PRN (21:08)
[2018-04-08] MEDS: ACETAMINOPHEN 325 MG TABLET PO PRN (21:08)
[2018-04-08] MEDS: ONDANSETRON ODT 4 MG TAB.RAPDIS SL PRN (21:09)
--- NOTE | 2018-04-08 21:09 | NUR ---
PRN VISTARIL, ZOFRAN TYLENOL ADMINISTRATION PATIENT ANXIOUS, NAUSEATED BUT NO EMESIS AND C/O BACK PAIN. WILL MONITOR FOR EFFECTIVENESS
--- NOTE | 2018-04-08 21:38 | NUR ---
PRN ZOFRAN RE-ASSESSMENT PATIENT STATES ZOFRAN WAS HELPFUL AND EFFECTIVE. NAUSEA IMPROVED
[2018-04-08] MEDS: QUETIAPINE FUMARATE 100 MG TABLET PO PRN (22:03)
--- NOTE | 2018-04-08 22:03 | NUR ---
PRN SEROQUEL ADMINISTRATION PATIENT REQUESTS FOR SLEEP AID. WILL MONITOR FOR EFFECTIVENESS
--- NOTE | 2018-04-08 22:09 | NUR ---
PRN VISTARIL AND TYLENOL RE-ASSESSMENT PATIENT STATES VISTARIL AND TYLENOL WAS HELPFUL AND EFFECTIVE. PATIENT IS LESS ANXIOUS AND PAIN IS TOLERABLE
--- NOTE | 2018-04-08 23:30 | NUR ---
PRN SEROQUEL RE-ASSESSMENT PATIENT SLEEPING AT THIS TIME. RESPIRATION EVEN AND UNLABORED. WILL CONTINUE TO MONITOR
[2018-04-09] VITALS: BP 91/60
--- NOTE | 2018-04-09 | NUR ---
COWS AND CIWA DEFERRED PATIENT SLEEPING. RESPIRATION EVEN AND UNLABORED. SAFETY MEASURES IN PLACE. CALL LIGHT IN REACH. WILL CONTINUE TO MONITOR
--- NOTE | 2018-04-09 | NUR ---
KEVIN AND BEVERLYWA DEFERRED PATIENT SLEEPING . RESPIRATION EVEN AND UNLABORED. WILL CONTINUE TO MONITOR Addendum: 04/09/18 at 0653 by HUBERT PAINTING LVN ERROR:DUPLICATE
--- NOTE | 2018-04-09 04:00 | NUR ---
COWS AND CIWA DEFERRED PATIENT SLEEPING . RESPIRATION EVEN AND UNLABORED. VS REFUSED. WILL CONTINUE TO MONITOR
--- NOTE | 2018-04-09 07:28 | NUR ---
END OF SHIFT NOTE PATIENT SLEPT 7 HOURS. FLUID INTAKE 1,250 ML. VOIDED X 2. NO BM. MONITORED PATIENT THROUGHOUT SHIFT. PATIENT COMPLIANT WITH MEDICATION AND TREATMENT PLAN. PATIENT WAS C/O BACK PAIN . PRN TYLENOL GIVEN. CONTINUE ON CONTACT ISOLATION FOR MRSA ON NARES. SCHEDULED MEDICATION AND TAPER GIVEN ORDERED, TOLERATED WELL AND NO ADVERSE REACTION NOTED. PATIENT WAS GIVEN PRN SEROQUEL FOR SLEEP. LAST COWS 14 AND CIWA 16. SAFETY MEASURES IN PLACE. CALL LIGHT IN REACH. WILL CONTINUE TO MONITOR.
--- NOTE | 2018-04-09 07:59 | NUR ---
START OF SHIFT NOTE Received report from night nurse 47 year old female admitted for Benzo/Opioids, amphetamine withdrawal and patient continues with Subutex and Phenobarbital taper tolerating well. Per endorsement patient was given PRN Zofran, Tylenol, Seroquel,Vistaril, last CIWA 17, COWS-14, slept for 7 hours. Received patient alert awake oriented x4, anxious, agitated, restless,bilateral hand tremors noted, body aches, sweats, chills, hot and cold flashes. Educated patient with plan of care and medication regimen with good verbal understanding. All safety measures in place,call light within reach. Will continues to monitor.
[2018-04-09 08:00] VITALS: BP 105/62
--- NOTE | 2018-04-09 08:00 | NUR ---
COWS/CIWA ASSESSMENT Patient is alert awake oriented x4 continues to exhibit s/s of withdrawal such as body aches, yawning, bilateral hand tremors, sweats, chills, anxious and agitated, light headed, nausea, sweats, piloerection CIWA score -15, and COWS noted-15. Will cont to monitor.
[2018-04-09] MEDS: PHENOBARBITAL 60 MG TABLET PO SCH ×2 (08:54→21:25)
[2018-04-09] MEDS: FOLIC ACID 1 MG TABLET PO SCH (08:54)
[2018-04-09] MEDS: THIAMINE HCL 100 MG TABLET PO SCH (08:54)
[2018-04-09] MEDS: GABAPENTIN 300 MG CAPSULE PO SCH ×4 (08:54→17:00)
[2018-04-09] MEDS: MUPIROCIN 2% OINT 22 GM TUBE NS SCH ×2 (08:54→21:25)
[2018-04-09] MEDS: MULTIVITAMINS,THERAPEUTIC TABLET PO SCH (08:54)
[2018-04-09] MEDS: ATENOLOL 50 MG TABLET PO SCH (08:56)
[2018-04-09] MEDS ORDERED: BUPRENORPHINE HCL 2 MG TAB.SUBL SL SCH (09:00)
[2018-04-09] MEDS: ONDANSETRON ODT 4 MG TAB.RAPDIS SL PRN ×2 (09:41→17:44)
--- NOTE | 2018-04-09 09:41 | NUR ---
PRN ZOFRAN Patient reported feeling nauseated no emesis. Patient provided with non pharmacological intervention with no relief. PRN Zofran 4mg SL given as ordered. Will cont to monitor and reassess.
--- NOTE | 2018-04-09 10:14 | NUR ---
ZOFRAN REASSESSMENT Per patient Fidel was effective and " I am feeling much better."
[2018-04-09] MEDS: LIDOCAINE 5% PATCH TD SCH (11:35)
[2018-04-09 12:00] VITALS: BP 117/73
--- NOTE | 2018-04-09 12:00 | NUR ---
COWS/CIWA ASSESSMENT Patient is currently lying in bed labile facial expression, and continues to exhibit s/s of withdrawal such as bilateral hand tremors, sweats, chills, stuffy nose, anxious and agitated, bone and joint aches, difficulty sitting still, light headed, CIWA score -14, and COWS noted-14. Will cont to monitor.
[2018-04-09] MEDS: HYDROXYZINE PAMOATE 25 MG CAPSULE PO PRN ×2 (13:24→21:25)
--- NOTE | 2018-04-09 13:24 | NUR ---
PRN VISTARIL Patient reported increased in anxiety, agitation, restless, sweats. Patient provided with non pharmacological intervention with no relief such as calming environment, breathing exercise. PRN Vistaril 25mg PO given as ordered.
--- NOTE | 2018-04-09 14:24 | NUR ---
VISTARIL REASSESSMENT Per patient Vistaril was effective anxiety, agitation, sweats decreased.
[2018-04-09 16:00] VITALS: BP 118/70
--- NOTE | 2018-04-09 16:00 | NUR ---
COWS/CIWA ASSESSMENT Patient has poor eye contact, mood is sad, and continues to exhibit s/s of withdrawal such as bilateral hand tremors, sweats, chills, stuffy nose, patient reported slightly decreased in anxiety, agitation, restless, skin is smooth, but continues feeling bone and joint aches, light headed, CIWA score -13, and COWS noted-12. Will cont to monitor.
[2018-04-09] MEDS: KETOROLAC TROMETHAMINE 30 MG INJ IM PRN (16:43)
--- NOTE | 2018-04-09 16:43 | NUR ---
PRN TORADOL Patient reported neck, lower back upper back pain and radiating to bilateral arms 8/10, patient is having difficulty sitting still. Non pharmacological intervention is ineffective. PRN Toradol 30ml IM given as ordered on right gluteal. Injection site clean and dry no swelling no blood return noted upon administration. Will continues to monitor and reassess for effectiveness.
[2018-04-09] MEDS ORDERED: QUETIAPINE FUMARATE 100 MG TABLET PO PRN (16:45)
--- NOTE | 2018-04-09 17:13 | NUR ---
TORADOL REASSESSMENT Per patient Toradol was effective and pain lower to 4/10. Addendum: 04/09/18 at 1802 by KARAN HART LVN Correction- Pain lower to 3/10
--- NOTE | 2018-04-09 17:44 | NUR ---
PRN ZOFRAN Patient came to the nursing station and c/o of nausea, no vomiting present at this time. Non pharmacological intervention ineffective such as saltine cracker, Gingerall. PRN Zofran 4mg PO administered as ordered. Will cont to monitor and reassess for effectiveness.
--- NOTE | 2018-04-09 18:14 | NUR ---
ZOFRAN REASSESSMENT Per patient Zofran was effective nausea improved.
[2018-04-09] MEDS ORDERED: GABAPENTIN 300 MG CAPSULE PO ONE (18:15)
--- NOTE | 2018-04-09 19:11 | NUR ---
END OF SHIFT NOTE Gave report to night nurse 47 year old female admitted for Benzo/Opioids, amphetamine withdrawal and patient continues with Subutex and Phenobarbital taper tolerating well. Patient continues to exhibit body aches, anxiety, agitation, restless, bilateral hand tremors, numbness, diaphoretic, appears undernourished, unkempt room, sad facial expression, worried, poor eye contact, runny nose/stuffy nose, nausea, irritable soft speech, Tense muscles. Patient received scheduled medications and PRN'S Vistaril, Zofran x2, Toradol noted to be effective. Patient was seen by MD with new order to apply lidocaine patch on upper back for pain and gabapentin order was changed from 300mg PO TID to 600mg PO TID, patient made aware. Patient was given scheduled 300mg gabapentin in the evening and MD ordered 300mg one time dose, one time order entered by charge nurse. medication administered as ordered. Patch was applied as ordered. Patient attended groups activities. Encourage PO fluids as tolerated. Patient continues on isolation precaution fro MRSA of the nares and treating with Bactroban Q12 hours. All safety measures in place, call light within reach. Patient endorse to night nurse in stable condition.
--- NOTE | 2018-04-09 19:30 | NUR ---
START OF SHIFT NOTE RECEIVED REPORT FROM DAY SHIFT NURSE. PATIENT IS A 47 YEAR OLD FEMALE ADMITTED FOR BENZO/OPIATE WITHDRAWAL. PATIENT ON SUBUTEX AND PHENOBARBITAL TAPER. PATIENT WITH NEW ORDER OF LIDOCAINE AND TORADOL IM INJECTION. GABAPENTIN WAS INCREASED. PRN TORADOL IM, VISTARIL AND ZOFRAN X 2 GIVEN. CONTINUE ON CONTACT ISOLATION FOR MRSA OF NARES. LAST COWS 12 AND CIWA 13. PATIENT IN THE ROOM WATCHING TV AT THIS TIME. PATIENT PRESENTS WITH ANXIETY, RESTLESSNESS, NUMBNESS ON RIGHT LEG, HOT AND COLD SWEATS, FINE TREMORS ON BILATERAL HANDS, POOR APPETITE, NAUSEATED BUT NO EMESIS AND HEADACHE. SAFETY MEASURES IN PLACE. CALL LIGHT IN REACH. WILL CONTINUE TO MONITOR.
[2018-04-09 20:00] VITALS: BP 99/56
--- NOTE | 2018-04-09 20:00 | NUR ---
COWS AND CIWA ASSESSMENT PATIENT PRESENTS WITH ANXIETY, RESTLESSNESS, NUMBNESS ON RIGHT LEG, HOT AND COLD SWEATS, FINE TREMORS ON BILATERAL HANDS, POOR APPETITE, NAUSEATED BUT NO EMESIS AND HEADACHE .COWS 14 AND CIWA 15.
[2018-04-09] MEDS: ACETAMINOPHEN 325 MG TABLET PO PRN (21:24)
--- NOTE | 2018-04-09 21:25 | NUR ---
PRN ROBAXIN, SEROQUEL , TYLENOL AND VISTARIL ADMINISTRATION PATIENT ANXIOUS, C/O MUSCLE ACHES ,HEADACHE AND REQUESTS FOR SLEEP AID. WILL MONITOR FOR EFFECTIVENESS
[2018-04-09] MEDS: METHOCARBAMOL 500 MG TABLET PO PRN (21:27)
[2018-04-09] MEDS: QUETIAPINE FUMARATE 25 MG TABLET PO PRN (21:29)
--- NOTE | 2018-04-09 22:25 | NUR ---
PRN ROBAXIN, TYLENOL, VISTARIL AND ROBAXIN RE-ASSESSMENT PATIENT SLEEPING AT THIS TIME. NO FACIAL GRIMACING. RESPIRATION EVEN AND UNLABORED. WILL CONTINUE TO MONITOR.
--- NOTE | 2018-04-10 | NUR ---
COWS AND CIWA DEFERRED PATIENT SLEEPING AT THIS TIME. NO FACIAL GRIMACING. RESPIRATION EVEN AND UNLABORED. VS REFUSED. WILL CONTINUE TO MONITOR.
--- NOTE | 2018-04-10 04:00 | NUR ---
COWS AND CIWA DEFERRED PATIENT SLEEPING AT THIS TIME. NO FACIAL GRIMACING. RESPIRATION EVEN AND UNLABORED. VS REFUSED. WILL CONTINUE TO MONITOR.
--- NOTE | 2018-04-10 07:18 | NUR ---
END OF SHIFT NOTE PATIENT SLEPT 7 HOURS. FLUID INTAKE 1,000 ML.VOIDED X 1. NO BM. MONITORED PATIENT THROUGHOUT SHIFT. SCHEDULED MEDICATION AND TAPER GIVEN ORDERED, TOLERATED WELL AND NO ADVERSE REACTION. PATIENT PRESENTED WITH ANXIETY, RESTLESSNESS, NUMBNESS ON RIGHT LEG, HOT AND COLD SWEATS, FINE TREMORS ON BILATERAL HANDS, POOR APPETITE, NAUSEATED BUT NO EMESIS BUT TOLERABLE , HEADACHE AND MYALGIA . PATIENT WAS GIVEN PRN ROBAXIN ,TYLENOL , VISTARIL AND SEROQUEL. PATIENT STATES MEDICATIONS ARE EFFECTIVE IN CONTROLLING HIS WITHDRAWAL SYMPTOMS. LAST COWS 14 AND CIWA 15 . PATIENT COMPLIANT WITH MEDICATION AND TREATMENT PLAN. SAFETY MEASURES IN PLACE. CALL LIGHT IN REACH. WILL CONTINUE TO MONITOR
--- NOTE | 2018-04-10 07:27 | NUR ---
Start of Shift Notes: Received patient in her room. Laying down. Eyes closed. Arousable when her name is called. She states "What time is it?" Redirected patient to the time. Patient is alert and oriented x 4. Verbally responsive. She appears drowsy upon waking. Complains of 4/10 generalized body pain at this time and mild nausea but tolerable. Patient is a 47 yo female admitted for opiate and BZO withdrawal who was placed on a 5-day Subutex and 6-day Phenobarbital taper as ordered. Educated patient on her current plan of care for the day and her medication regimen. Encouraged oral fluid intake and encouraged group participation to learn new skills to prevent relapse. Will continue to monitor. Addendum: 04/10/18 at 0756 by MELE AWAN LVN Per night report, patient was given PRN Robaxin, Seroquel, Tylenol and Vistaril were given during the night. Last . Slept for 7 hours.
[2018-04-10 08:00] VITALS: BP 97/60
[2018-04-10] MEDS ORDERED: PHENOBARBITAL 60 MG TABLET PO SCH (09:00)
[2018-04-10] MEDS: LIDOCAINE 5% PATCH TD SCH (09:33)
[2018-04-10] MEDS: ONDANSETRON ODT 4 MG TAB.RAPDIS SL PRN ×2 (09:34→16:41)
[2018-04-10] MEDS: GABAPENTIN 300 MG CAPSULE PO SCH ×3 (09:34→16:40)
[2018-04-10] MEDS: MULTIVITAMINS,THERAPEUTIC TABLET PO SCH (09:34)
[2018-04-10] MEDS: THIAMINE HCL 100 MG TABLET PO SCH (09:34)
[2018-04-10] MEDS: ATENOLOL 50 MG TABLET PO SCH (09:34)
[2018-04-10] MEDS: FOLIC ACID 1 MG TABLET PO SCH (09:34)
--- NOTE | 2018-04-10 09:35 | NUR ---
COWS/CIWA Assessments/MD Communication: COWS 15, CIWA 20, patient presented with chills, hot flashes, restlessness, pacing in the room, bone/joint aches, nausea, gross tremors, yawning, anxiety and agitation. Notified MD Jacobs of patient's CIWA score. Per MD, continue current taper at this time. Will continue to monitor.
[2018-04-10] MEDS: KETOROLAC TROMETHAMINE 30 MG INJ IM PRN ×2 (09:38→20:47)
--- NOTE | 2018-04-10 09:38 | NUR ---
Toradol 30 mg IM/Zofran 4 mg SL given: Patient complained of nausea. No emesis noted. Verbalizes "My back and joints are killing me, it's about a 9 out of 10." Medicated patient with Zofran 4 mg SL as ordered. Toradol 30 mg IM as ordered. Heat packs provided. On Lidocaine patch for pain management. Will monitor for effectiveness.
[2018-04-10] MEDS: MUPIROCIN 2% OINT 22 GM TUBE NS SCH ×2 (09:41→20:47)
--- NOTE | 2018-04-10 10:08 | NUR ---
Re-assessment: Toradol Patient verbalizes "It's about a 3 out of 10 right now." PRN Toradol was effective in reducing pain.
--- NOTE | 2018-04-10 10:34 | NUR ---
Re-assessment: Zofran 4 mg Patient verbalizes relief from nausea. PRN Zofran was effective.
[2018-04-10 12:00] VITALS: BP 110/76
--- NOTE | 2018-04-10 12:00 | NUR ---
COWS/CIWA Assessment/MD Communication: Patient's COWS 8/CIWA 17, patient continues to exhibit s/s of withdrawal m/b anxiety, agitation, sweating, mild nausea, yawning ceased, gross tremors felt. Notified Dr. Jacobs of patient's CIWA score. Per MD, continue current orders. Support provided. Oral fluids encouraged.
[2018-04-10 16:00] VITALS: BP 126/80
[2018-04-10] MEDS: HYDROXYZINE PAMOATE 25 MG CAPSULE PO PRN (16:41)
--- NOTE | 2018-04-10 16:41 | NUR ---
Zofran 4 mg SL/Vistaril 25 mg PO given: Patient complained of anxiety due to the discharge process and nausea with no emesis noted. Non-pharmacological interventions provided but ineffective. Medicated patient with Zofran 4mg SL and Vistaril 25 mg PO as ordered. Will monitor for effectiveness.
--- NOTE | 2018-04-10 16:50 | NUR ---
KEVIN/ROMANA Assessment/MD Communication: KEVIN 7, BEVERLYWA 15, patient continues to complain of chills, nausea, cold sweats, hot flashes, anxiety, agitation, and tremors. Notified Dr. Jacobs. Per MD, continue current orders.
--- NOTE | 2018-04-10 17:20 | NUR ---
Client was prompted by therapist to attend daily group sessions. Client stated that she would attend the next group.
--- NOTE | 2018-04-10 17:41 | NUR ---
Re-assessment: Zofran/Vistaril Patient verbalizes relief from nausea and anxiety. She states that PRN Zofran and Vistaril were effective in relieving nausea and reducing anxiety.
--- NOTE | 2018-04-10 19:05 | NUR ---
End of Shift Notes: Patient completed her 5-day Subutex taper yesterday and completed her 6-day Phenobarbital taper successfully. No adverse reactions noted. VS monitored closely. No significant abnormalities noted. Withdrawal symptoms were closely monitored. Initial COWS 15, CIWA 20, patient presented with chills, hot flashes, restlessness, bone/joint aches, gross tremors, yawning, anxiety and agitation. Medicated patient with Toradol 30 mg IM and Zofran 4 mg at 0938 with help. At 1641, patient was medicated with Zofran 4 mg SL and Vistaril 25 mg PO for nausea and anxiety with help. Last COWS 7/CIWA 15. Patient verbalizes that Subutex and Phenobarbital were effective in reducing her withdrawal symptoms. Compliant with care and treatment. Appetite good. Participates in group and activities. All needs met and attended. Will continue to monitor.
--- NOTE | 2018-04-10 19:30 | NUR ---
START OF SHIFT Received 47 year old female patient admitted on 04/04/18 for Benzodiazepine, Opiate, Ketamine, Adderall, and Ambien withdrawal. Pt is alert and oriented x4. Pt is complains of anxiety, nausea, restlessness, irritability, racing thoughts, chills, lightheadedness, neck, back, leg pain 8/10, and difficulty falling asleep. Per endorsement, she completed her 5 day Subutex and 6 day Phenobarbital taper and is scheduled to be DC tomorrow to [facility]. She received PRN Zofran, Toradol and Vistaril. Last COWS:7, CIWA:15. Breathing is even and unlabored, safety measures in place. Will continue to monitor.
[2018-04-10 20:00] VITALS: BP 101/60
--- NOTE | 2018-04-10 20:00 | NUR ---
COWS/CIWA Pt reports nausea, lightheadedness, chills, body aches, anxiety, agitation, and restlessness. COWS:9, CIWA:16. Will continue to monitor.
[2018-04-10] MEDS: METHOCARBAMOL 500 MG TABLET PO PRN (20:45)
[2018-04-10] MEDS: QUETIAPINE FUMARATE 25 MG TABLET PO PRN (20:45)
--- NOTE | 2018-04-10 20:47 | NUR ---
PRN ROBAXIN, TORADOL, SEROQUEL Pt complains of body aches, neck, lower back and leg pain 8/10. Pt also complains of difficulty falling asleep. PRN Robaxin, Toradol, and Seroquel administered as ordered. Safety measures in place. Will monitor effectiveness.
--- NOTE | 2018-04-10 21:10 | NUR ---
PRN TORADOL REASSESSMENT PRN medication effective. Pt lying in bed with eyes closed, noted to be drowsy. No facial grimacing noted. Breathing even and unlabored, safety measures in place. Will monitor.
--- NOTE | 2018-04-10 21:47 | NUR ---
PRN SEROQUEL/ROBAXIN REASSESSMENT PRN medications effective. Pt is lying in bed with eyes closed and is noted to be asleep. Breathing is even and unlabored, safety measures in place. Will monitor.
[2018-04-10] MEDS ORDERED: LIDO30AD10 TD (23:31)
[2018-04-10] MEDS ORDERED: IBUP-1955 PO (23:31)
[2018-04-10] MEDS ORDERED: METH500T6 PO (23:31)
[2018-04-10] MEDS ORDERED: GABA-534 PO (23:31)
[2018-04-10] MEDS ORDERED: MULT-24 PO (23:31)
[2018-04-10] MEDS ORDERED: HYDR-3895 PO (23:31)
[2018-04-10] MEDS ORDERED: MUPI22OI2 NS (23:31)
[2018-04-10] MEDS ORDERED: QUET25TA PO (23:31)
--- NOTE | 2018-04-11 | NUR ---
VITALS REFUSED, COWS/CIWA DEFERRED 0000 vitals refused. COWS and CIWA deferred d/t pt lying in bed with eyes closed noted to be asleep. Breathing is even and unlabored, safety measures in place. Will monitor.
--- NOTE | 2018-04-11 04:07 | NUR ---
VITALS REFUSED, COWS/CIWA DEFERRED 0400 vitals refused. COWS and CIWA deferred d/t pt lying in bed with eyes closed noted to be asleep. Breathing is even and unlabored, safety measures in place. Will continue to monitor.
--- NOTE | 2018-04-11 07:09 | NUR ---
END OF SHIFT Pt is a 47 year old female patient admitted on 04/04/18 for Benzodiazepine, Opiate, Ketamine, Adderall, and Ambien withdrawal. Pt remains alert and oriented x4. She complained of anxiety, nausea, restlessness, irritability, racing thoughts, chills, lightheadedness, neck, back, leg pain 8/10, and difficulty falling asleep during the shift. She is scheduled to be DC today to [facility]. At 2046 she received PRN Robaxin, Seroquel and Toradol. She slept a total of 8 hrs, Intake: 710mL, Void: x2, BM:0, COWS:9, CIWA:16 at 1999. Breathing is even and unlabored, safety measures in place. Endorsed to AM shift.
--- NOTE | 2018-04-11 07:10 | NUR ---
Start of Shift Notes: Received patient in her room. Awake, alert and verbally responsive. She is seen getting ready for her discharge today. She verbalizes anxiety, generalized pain of 5/10 at this time, and nausea. Uses SPC for ambulation. Patient is a 47 yo female admitted for opiate and BZO withdrawal who was placed on a 5-day Subutex and 6-day Phenobarbital taper as ordered. Patient completed her taper [facility] Educated patient on her medication regimen and the discharge process. Oral fluids encouraged. Per night report, patient was given PRN Robaxin, Seroquel and Toradol. Slept for 8 hours. Last COWS 9/ 16. Will continue to monitor.
[2018-04-11 08:00] VITALS: BP 106/53
--- NOTE | 2018-04-11 08:00 | NUR ---
COWS/CIWA Assessment: COWS 8/CIWA 12, patient complains of chills, hot flashes, bone/joint aches, nausea, tremors, irritability and tactile disturbance. Will offer PRN meds.
[2018-04-11 08:30] VITALS: BP 106/53
[2018-04-11] MEDS: THIAMINE HCL 100 MG TABLET PO SCH (08:30)
[2018-04-11] MEDS: FOLIC ACID 1 MG TABLET PO SCH (08:30)
[2018-04-11] MEDS: MUPIROCIN 2% OINT 22 GM TUBE NS SCH (08:30)
[2018-04-11] MEDS: ATENOLOL 50 MG TABLET PO SCH (08:30)
[2018-04-11] MEDS: MULTIVITAMINS,THERAPEUTIC TABLET PO SCH (08:31)
[2018-04-11] MEDS: IBUPROFEN 600 MG TABLET PO PRN (08:31)
[2018-04-11] MEDS: ONDANSETRON ODT 4 MG TAB.RAPDIS SL PRN (08:31)
--- NOTE | 2018-04-11 08:31 | NUR ---
Zofran 4 mg ODT/Vistaril 25 mg PO given: Patient noted with complain of nausea. No vomiting noted. She also complains of anxiety due to the discharge process. Redirected patient with non-pharmacological interventions with no help. Medicated patient with Zofran 4 mg ODT and Vistaril 25 mg PO as ordered. Will monitor for effectiveness.
[2018-04-11] MEDS: GABAPENTIN 300 MG CAPSULE PO SCH (08:32)
[2018-04-11] MEDS: LIDOCAINE 5% PATCH TD SCH (08:32)
[2018-04-11] MEDS: HYDROXYZINE PAMOATE 25 MG CAPSULE PO PRN (08:41)
--- NOTE | 2018-04-11 09:31 | NUR ---
Re-assessment: Vistaril/Zofran Patient verbalizes relief from nausea. She appears less anxious and verbalizes relief from anxiety. PRN Vistaril and Zofran were effective.
--- NOTE | 2018-04-11 09:35 | NUR ---
Discharged: Patient education provided regarding her discharge instructions. Patient verbalized good understanding of all teachings. All necessary dc paperwork were signed and sent with the patient. All clothings, medications and valuables were returned to the patient. COWS 8/CIWA. VS stable. Pain controlled. [employer] cabinet checked. Cassette checked. Escorted off the unit and picked up by [employer] [facility] at [facility]
== END 2018-04-11 09:35 | DRG 895 ==
LOC: SRC 13:27
PROVIDERS: ADMIT Family Medicine Addiction Medicine; ATTEND Family Medicine Addiction Medicine
PROC: HZ2ZZZZ Detoxification Services for Substance Abuse Treatment (ICD-10-PCS; principal; 2018-04-04)
PROC: HZ41ZZZ Group Counseling for Substance Abuse Treatment, Behavioral (ICD-10-PCS; 2018-04-05)
DX: F13.230 Sedative, hypnotic or anxiolytic dependence with withdrawal, uncomplicated (principal); M62.82 Rhabdomyolysis; F11.23 Opioid dependence with withdrawal; F17.210 Nicotine dependence, cigarettes, uncomplicated; Z91.5 Personal history of self-harm; R53.82 Chronic fatigue, unspecified; F10.21 Alcohol dependence, in remission; F41.1 Generalized anxiety disorder; F32.9 Major depressive disorder, single episode, unspecified; F15.23 Other stimulant dependence with withdrawal; G89.29 Other chronic pain; E88.09 Other disorders of plasma-protein metabolism, not elsewhere classified; Z90.710 Acquired absence of both cervix and uterus; M51.16 Intervertebral disc disorders with radiculopathy, lumbar region; M48.00 Spinal stenosis, site unspecified; G62.9 Polyneuropathy, unspecified
CPT/HCPCS: 36415; 70030-TC; 80307; 80324; 80346; 80361; 83735; 84703; 85025; 86580; 86592; 86705; 86803; 87340; 87806; G0480; J1885; J8499; Q0162